=== PATIENT | female | born 1990 | race Caucasian/White ===

== ENCOUNTER 2022-05-21 14:59 | Outpatient (RCR) | payer OTHER, SELFPAY ==
[2022-05-21 16:41] VITALS: BP 105/66; PULSE 84
== END 2022-08-19 23:59 | disposition home or self-care (01) ==
LOC: ANHOBOP 14:59
PROVIDERS: Visit Provider Obstetrics & Gynecology
DX: O36.8130 Decreased fetal movements, third trimester, not applicable or unspecified (principal); Z3A.27 27 weeks gestation of pregnancy
CPT/HCPCS: 59025

== ENCOUNTER 2022-08-14 13:42 | Inpatient (IN) | payer OTHER, SELFPAY ==
[2022-08-14] VITALS (17 sets, daily range): BP systolic 120–152; BP diastolic 71–89; PULSE 70–121; RESP 18; TEMP 36.4–36.7; O2SAT 96–99; BMI 28.7
--- NOTE | 2022-08-14 14:29 | LDADM ---
This patient, Meagan Finch, was admitted to Labor/Delivery/Recovery 107 on 08/14/22 at 13:42. Plans for labor, pain management and were discussed with patient. Patient/family oriented to hospital policies and general routines including ID bracelet, bed and alarms, visiting hours, pain management, procedures, bathroom and other care routines, personal items, smoking policy, room service/diet and guest tray routines, infant security routines, and visiting hours. Patient/Family are encouraged to report perceived risks to care and to ask questions if they do not understand what they are told or what they should do. See OBIX for further documentation.
[2022-08-14 14:55] LABS: Basophils Percent Auto 0.3 % (0.2-1.2); Eosinophils Percent Auto 0.3 % (0-4.4); Hematocrit 40.1 % (37.0-47.0); Immature Granulocyte Absolute 0.06 K/mm3 (0.00-0.031); Immature Granulocyte Percent A 0.4 % (0-0.5); Lymphocytes Percent Auto 14.9 % (18.3-44.2); Mean Corpuscular HGB Conc 32.4 g/dl (32-36); Mean Corpuscular Hemoglobin 29.4 pg (26-34); Mean Corpuscular Volume 90.7 fl (80-100); Mean Platelet Volume 9.9 fl (7.4-10.4); Monocytes Absolute Auto 0.7 K/mm3 (0.1-0.6); Monocytes Percent Auto 4.9 % (2.6-8.5); Neutrophils Absolute Auto 11.7 K/mm3 (1.3-6.7); Neutrophils Percent Auto 79.2 % (45.5-73.1); Platelet Count Result 308 k/mm3 (150-375); Red Blood Count 4.42 M/mm3 (4.2-5.4); Red Cell Distribution Width 14.5 % (11.5-14.5); White Blood Count 14.8 K/mm3 (4.5-10.0)
--- NOTE | 2022-08-14 15:19 | P.HP_ITS ---
H&P: HPI History of Present Illness Date/Time: 08/14/22 15:19 Chief Complaint: Labor at term Narrative: this is a 32-year-old 2 para 1 whose last menstrual period is unknown but EDC is 08/18/2022 confirmed by 8 week ultrasound who presents at 3917 weeks gestation active labor she had an abnormal GCT but her 4hour was 4/4 normal she is negative for group B strep and she plans no epidural PMFSH Family History Family History Mother Diabetes mellitus Social History Social History Smoking status: Never smoker Second hand tobacco smoke exposure: No Substance use: never Lack of Transportation: No Lack of Food: Never True Current Housing: I Have Housing Concerned About Future Housing: No Difficulty Paying Gas/Electric Bills: No Difficulty Paying for Meds: No Currently Unemployed: No Education: Associate Degree Difficulty w/ Childcare or Family Care: No Spiritual care concerns: No Meds Home Medications and Allergies Home Medications Medication Instructions Recorded Confirmed Type No Home Medications 07/22/22 08/14/22 History Allergies Allergy/AdvReac Type Severity Reaction Status Date / Time No Known Allergies Allergy Verified 08/14/22 14:26 Vital Signs Vital Signs - 24 hr 08/14/22 14:27 08/14/22 14:31 08/14/22 14:45 Pulse Rate 72 74 Blood Pressure 151/82 H 132/86 Oxygen Delivery Room Air 08/14/22 14:46 08/14/22 15:15 08/14/22 15:16 Pulse Rate 77 70 103 H Blood Pressure 131/86 132/86 125/88 Oxygen Delivery Exam Const: General: healthy appearing and comfortable Orientation/conscious ness: oriented to person, oriented to place and oriented to time HENMT: Head: normal to inspection Resp: Effort & Inspection: normal respiratory effort Cardio: Rate: regular rate Rhythm: regular rhythm Heart sounds: S1 normal heart sound present and S2 normal heart sound present GI: Inspection: normal to inspection ( gravid soft uterus) : External Female Exam: normal external appearance Speculum Exam - Vagina: normal appearance of the vagina Speculum Exam - Cervix: normal appearance of the cervix ( cervix 5/100/1. AROM clear. FHT is reassuring) H&P: Results Labs Labs: Short CBC 08/14/22 Range/Units 14:23 WBC 14.8 H (4.5-10.0) K/mm3 Hgb 13.0 (12.0-15.0) g/dL Hct 40.1 (37.0-47.0) % Plt Count 308 (150-375) k/mm3 Assessment and Plan Assessment and plan (1) Term : Code(s): Z34.90 - Encounter for supervision of normal , unspecified, unspecified trimester Status: Acute Plan spontaneous vaginal delivery is expected
--- NOTE | 2022-08-14 17:01 | PM.OBPRVD ---
OB - Delivery Note Procedure Delivery date: 08/14/22 Induction method: None Delivery monitor: External FHT Route of delivery: Episiotomy description: None Laceration Description: None Specimen: No Quantitative Blood Loss (ml): 60 Anesthesia type: None Disposition: Floor [place] Baby Date of : 08/14/22 Time of : 16:51 Weeks of gestation at delivery: 39 Infant gender: Female presentation: vertex position: Right Occiput Anterior Placenta delivery description: Spontaneous Cord Vessel Description: 3 Vessels and Delayed Cord Clamping score one minute: 9 score five minutes: 9
--- NOTE | 2022-08-14 17:21 | PC.NURSE ---
Patient refused post delivery pitocin drip and refused continued use of IV access. Patient educated on risks of hemorrhage and possibility of needing a new IV. Patient verbalizes understanding and has no questions at this time. Patient's fundus palpates firm, midline, and at umbilicus at this time.
--- NOTE | 2022-08-14 18:23 | PC.NURSE ---
Dr. Edna Grady called about patient not getting any pit due to wanting her IV taken out. Dr. Edna Grady made aware that pt has vaginal flow and blood clots with last 3 fundal checks with blood loss measure to be 100 gms. Orders for .2mg methergine.
[2022-08-14] MEDS: METHYLERGONOVINE MALEATE 0.2 MG/ML VIAL IM (18:31)
--- NOTE | 2022-08-14 19:13 | PC.NURSE ---
Report given to RAYRAY Stone
--- NOTE | 2022-08-14 19:19 | OBPPTRN ---
Patient transferred to post room #288 via W/C. Support person present. Oriented to unit, room, information board, rooming in, admission packet and security measures. Patient verbalizes understanding.
[2022-08-14] MEDS: IBUPROFEN 600 MG TABLET PO (19:30)
[2022-08-14] MEDS: POLYSACCHARIDE IRON COMPLEX 150 MG CAPSULE PO (19:44)
[2022-08-14] MEDS: ACETAMINOPHEN 325 MG TABLET 650 MG PO (23:58)
[2022-08-15 04:13] VITALS: BP 120/70; PULSE 96; RESP 18; TEMP 36.7; O2SAT 100
[2022-08-15 05:56] LABS: Hematocrit 32.3 % (37.0-47.0); Hemoglobin 10.6 g/dL (12.0-15.0)
[2022-08-15 07:35] VITALS: BP 117/73; PULSE 88; RESP 16; TEMP 37.2; O2SAT 98
--- NOTE | 2022-08-15 07:43 | PM.DS ---
DS: Admitting Diagnosis Discharge Date 08/15/2022 Admitting Diagnosis term DS: Discharge Diagnosis Discharge Diagnosis (1) Term : Code(s): Z34.90 - Encounter for supervision of normal , unspecified, unspecified trimester Status: Acute DS: Summary Hospital Course Reason for hospitalization: active labor at term Hospital Course: this is a 32-year-old 2 now para 2 who is admitted at term in active labor. She underwent rapid spontaneous vaginal delivery with no epidural. Her hospital course was unremarkable. She remained afebrile. She was up, voiding without difficulty, ambulating, eating regular diet, breast-feeding, and generally without complaints. Time Spent with Patient Time attestation: Total time spent providing and/or coordinating discharge services: Exam Const: General: cooperative, healthy appearing and comfortable Nutritional Appearance: average body habitus Orientation/consciousness: oriented to person, oriented to place and oriented to time HENMT: Head: normal to inspection Resp: Effort & Inspection: normal respiratory effort Cardio: Rate: regular rate Rhythm: regular rhythm Heart sounds: S1 normal heart sound present and S2 normal heart sound present GI: Inspection: normal to inspection ( Fundus firm below the umbilicus) DS: Data Data Completed and Pending Labs on day of discharge: Labs from last 24 hours 08/15/22 08/14/22 08/14/22 04:22 14:23 14:23 WBC RBC Hgb 10.6 L Hct 32.3 L MCV MCH MCHC RDW Plt Count MPV Immature Gran % (Auto) Neut % (Auto) Lymph % (Auto) [place] % (Auto) Eos % (Auto) Baso % (Auto) Lymph # (Auto) [place] # (Auto) Eos # (Auto) Baso # (Auto) Abs Immat Gran (auto) Absolute Neuts (auto) Absolute Nucleated RBC Nucleated RBC % RPR Pending Blood Type A Positive Antibody Screen Negative 08/14/22 14:23 WBC 14.8 H RBC 4.42 Hgb 13.0 Hct 40.1 MCV 90.7 MCH 29.4 MCHC 32.4 RDW 14.5 Plt Count 308 MPV 9.9 Immature Gran % (Auto) 0.4 Neut % (Auto) 79.2 H Lymph % (Auto) 14.9 L [place] % (Auto) 4.9 Eos % (Auto) 0.3 Baso % (Auto) 0.3 Lymph # (Auto) 2.20 [place] # (Auto) 0.7 H Eos # (Auto) 0.0 Baso # (Auto) 0.0 Abs Immat Gran (auto) 0.06 H Absolute Neuts (auto) 11.7 H Absolute Nucleated RBC 0.0 Nucleated RBC % 0.0 RPR Blood Type Antibody Screen Discharge Plan Discharge Attending physician on discharge: Dean Jeong Discharging Clinician: Dean Jeong Patient Disposition: Home, Self-Care Activity: may shower, may drive after 2 weeks and pelvic rest Diet: heart healthy Wound Care Instructions: follow printed instructions Patient Instructions: Antibiotic Form Stand Alone Forms: General Discharge Information Follow-up/Referrals: Dean Jeong MD [Physician] - Discharge Medications: No Action No Home Medications Date of admission: 08/14/22 13:42 Primary Care Provider: PHYSICIAN,LABORER [employer] Admitting Provider: Dean Jeong Attending physician on admission: Dean Jeong Condition: Stable
[2022-08-15] MEDS: DOCUSATE SODIUM 100 MG CAPSULE PO (07:46)
[2022-08-15] MEDS: IBUPROFEN 600 MG TABLET PO (07:46)
[2022-08-15] MEDS: MULTIVIT/MIN/PREN/FOL AC/IRON TABLET 1 TAB PO (07:46)
--- NOTE | 2022-08-15 07:46 | PM.OBPNVD ---
OB - PN: Subj Subjective Date/time seen: 08/15/22 07:46 Patient comments: no complaints and pain well controlled baby status: doing well and nursing well OB - PN: Obj Data Labs 08/15/22 04:22 Labs: Laboratory Results - last 24 hr 08/14/22 08/14/22 08/15/22 14:23 14:23 04:22 WBC 14.8 H RBC 4.42 Hgb 13.0 10.6 L Hct 40.1 32.3 L MCV 90.7 MCH 29.4 MCHC 32.4 RDW 14.5 Plt Count 308 MPV 9.9 Immature Gran % (Auto) 0.4 Neut % (Auto) 79.2 H Lymph % (Auto) 14.9 L [place] % (Auto) 4.9 Eos % (Auto) 0.3 Baso % (Auto) 0.3 Lymph # (Auto) 2.20 [place] # (Auto) 0.7 H Eos # (Auto) 0.0 Baso # (Auto) 0.0 Abs Immat Gran (auto) 0.06 H Absolute Neuts (auto) 11.7 H Absolute Nucleated RBC 0.0 Nucleated RBC % 0.0 Blood Type A Positive Antibody Screen Negative OB - PN A/P Plan day: 1 Plan: routine care, discharge home and follow up 6 weeks Time Spent With Patient Time: Total time spent is greater than 50% in coordination of care (as documented) at patient's floor/unit and/or counseling patient: Time with patient: less than 15 minutes Exam Const: General: cooperative, healthy appearing and comfortable Nutritional Appearance: average body habitus Orientation/consciousness: oriented to person, oriented to place and oriented to time HENMT: Head: normal to inspection Resp: Effort & Inspection: normal respiratory effort Cardio: Rate: regular rate Rhythm: regular rhythm Heart sounds: S1 normal heart sound present and S2 normal heart sound present GI: Inspection: normal to inspection ( fundus firm below the umbilicus)
--- NOTE | 2022-08-15 11:50 | PC.NURSE ---
Patient viewed the discharge video Mother & Baby Care, The First Two Weeks . Patient was given the opportunity and encouraged to ask questions. Patient verbalized understanding of information shared and has been given the mother/baby guide for home reference.
[2022-08-15 12:20] VITALS: BP 118/86; PULSE 76; RESP 16; TEMP 36.8; O2SAT 98
--- NOTE | 2022-08-15 14:20 | PC.NURSE ---
[id number] Mother verbalizes she is able to independently latch with appropriate positioning/alignment. She denies any nipple discomfort and is responsively . Infant is currently meeting outcomes for weight, output, jaundice and feeding frequencies of 8-12 times in 24 hours. Mother breastfed her first child for 13 months who is now 19 months old. Mother declines any additional assistance/education at this time. Mother is encouraged to call for assistance if her infant doesn?t latch or there is discomfort with latching. Mother voiced understanding of information shared and the mom reminded of the mom/baby guide for an additional resource. Mother is feeding appropriately for growth of infant and understands stimulating infant to eat if needed. has had appropriate feedings in the last 24 hours meets the outcomes for weight, output and jaundice at this time. Mother states she is confident to continue effectively her at home, when to call for assistance and denies any additional assistance or education at this time. Reinforced understanding of milk production, transition of milk, signs of adequate intake, transition of stool, prevention/relief of engorgement, responsive watching for feeding cues, the different methods of stimulating infant to breastfeed 2-3 hours after the start of the last feeding, community resources, medication information reviewed per [facility] and when to call a provider using the resource of the mom and baby guide/[facility] website. Mother voiced understanding of the education shared. Reported to the primary RN.
[2022-08-15 16:18] VITALS: BP 118/78; PULSE 82; RESP 16; TEMP 36.9; O2SAT 100
[2022-08-16 09:43] LABS: Rapid Plasma Reagin Non-Reactive (NonReactive)
[2022-08-16 14:50] VITALS: BP 136/70; PULSE 76; RESP 20; TEMP 37; O2SAT 98
== END 2022-08-15 18:50 | disposition home or self-care (01) | DRG 807 ==
LOC: ANHLDR 14:16 → ANHOB2 19:40
PROVIDERS: Admitting Provider Obstetrics & Gynecology; Visit Provider Obstetrics & Gynecology
DX: O80 Encounter for full-term uncomplicated delivery (principal); Z37.0 Single live birth; Z3A.39 39 weeks gestation of pregnancy
CPT/HCPCS: 36415; 85014; 85018; 85025; 86592; 86850; 86900; 86901; A9270; J2210

== ENCOUNTER 2023-12-15 22:58 | Observation (INO) | payer OTHER, SELFPAY ==
--- NOTE | 2023-12-15 22:58 | PC.NURSE ---
Pt arrives to unit from home with leaking and contractions.
--- NOTE | 2023-12-16 01:41 | OBADM ---
This patient, Meagan Finch, admitted to the OB room Labor/Delivery/Recovery 104 for observation. Patient/family oriented to hospital policies and general routines including ID bracelet, bed and alarms, visiting hours, pain management, procedures, bathroom and other care routines, personal items, smoking policy, room service/diet, and visiting hours. Patient/Family are encouraged to report perceived risks to care and to ask questions if they do not understand what they are told or what they should do.
[2023-12-16 01:48] VITALS: BMI 29.7
--- NOTE | 2023-12-16 01:56 | PC.NURSE ---
Pt discharged with instructions on when to return to the unit.
--- NOTE | 2023-12-19 08:47 | PM.OBTRLD ---
OB - Triage/Final Diagnosis Visit Information Comments/Additional reasons for admission: I have assessed the risk for this patient, Meagan Finch, and determined that she would benefit from observation care. Final Diagnosis (1) False labor: Code(s): O47.9 - False labor, unspecified Status: Acute
== END 2023-12-16 01:56 | disposition home or self-care (01) ==
PROVIDERS: Admitting Provider Obstetrics & Gynecology; Visit Provider Obstetrics & Gynecology
DX: O47.1 False labor at or after 37 completed weeks of gestation (principal); Z3A.40 40 weeks gestation of pregnancy
CPT/HCPCS: 84112; G0378; G0379

== ENCOUNTER 2023-12-21 01:19 | Inpatient (IN) | payer OTHER, SELFPAY ==
[2023-12-21] VITALS (15 sets, daily range): BP systolic 117–134; BP diastolic 73–89; PULSE 71–132; RESP 16–18; TEMP 36.5–36.8; O2SAT 98–100; BMI 29.1
[2023-12-21] MEDS: LIDOCAINE HCL 1% LOCAL INJ 20 ML VIAL (01:53)
--- NOTE | 2023-12-21 02:00 | PM.IMHP ---
H&P: HPI History of Present Illness Date/Time: 12/21/23 02:00 Chief Complaint: Labor at 41 weeks Narrative: 33-year-old 3 para 2 at41 and 2 7th weeks gestation with active labor. has been uncomplicated. She is negative for group B strep PMFSH Family History Family History Mother Diabetes mellitus Social History Social History Smoking status: Never smoker Second hand tobacco smoke exposure: No Substance use: never Lack of Transportation: No Lack of Food: Never True Current Housing: I Have Housing Concerned About Future Housing: No Difficulty Paying Gas/Electric Bills: No Difficulty Paying for Meds: No Currently Unemployed: No Education: Associate Degree Difficulty w/ Childcare or Family Care: No Spiritual care concerns: No Meds Home Medications and Allergies Home Medications Medication Instructions Recorded Confirmed Type prenat.vits,antonella,[id number] 1 tablet 12/08/23 History Allergies Allergy/AdvReac Type Severity Reaction Status Date / Time No Known Allergies Allergy Verified 12/16/23 02:11 Vital Signs Vital Signs - 24 hr 12/21/23 01:38 12/21/23 01:38 12/21/23 01:43 Pulse Oximetry 100 100 99 12/21/23 01:43 12/21/23 01:44 12/21/23 01:44 Pulse Oximetry 98 100 99 Exam Const: General: cooperative, healthy appearing and comfortable Nutritional Appearance: average body habitus Orientation/consciousness: oriented to person, oriented to place and oriented to time HENMT: Head: normal to inspection Resp: Effort & Inspection: normal respiratory effort Cardio: Rate: regular rate Rhythm: regular rhythm Heart sounds: S1 normal heart sound present and S2 normal heart sound present GI: Inspection: normal to inspection : Speculum Exam - Vagina: normal appearance of the vagina Speculum Exam - Cervix: normal appearance of the cervix ( cervix 7 and quickly to complete with spontaneous rupture membranes) Assessment and Plan Assessment and plan (1) Term : Code(s): Z34.90 - Encounter for supervision of normal , unspecified, unspecified trimester Status: Acute Plan spontaneous vaginal deliveries in the
--- NOTE | 2023-12-21 02:03 | PM.OBPRVD ---
OB - Vaginal Delivery Note Procedure Delivery date: 12/21/23 Events: Other ( postdate ) Induction method: None Delivery monitor: External FHT Route of delivery: Episiotomy description: None Laceration Description: Perineal - 1st Degree Delivery repair: vicryl Specimen: No Quantitative Blood Loss (ml): 61 Anesthesia type: Local Disposition: Floor Complications: No immediate complications Narrative: patient was admitted in active labor at 40-,1/2 weeks gestation and underwent spontaneous vaginal delivery placenta delivered intact spontaneously. Baby Date of : 12/21/23 Time of : 01:43 Weeks of gestation at delivery: 41 gender: Female presentation: vertex Placenta delivery description: Spontaneous Cord Vessel Description: 3 Vessels score one minute: 7 score five minutes: 9
--- NOTE | 2023-12-21 02:05 | PM.DS ---
DS: Admitting Diagnosis Discharge Date 12/22/2023 Admitting Diagnosis Term DS: Discharge Diagnosis Discharge Diagnosis (1) Term : Code(s): Z34.90 - Encounter for supervision of normal , unspecified, unspecified trimester Status: Acute DS: Summary Hospital Course Reason for hospitalization: patient was admitted on 12/21 23 and underwent spontaneous vaginal delivery Hospital Course: the patient's hospital course was unremarkable. She remained afebrile. She was up, voiding without difficulty, eating regular diet, ambulating, and generally without complaints. Time Spent with Patient Time attestation: Total time spent providing and/or coordinating discharge services: Discharge Plan Discharge Attending physician on discharge: Dean Jeong Discharging Clinician: Dean Jeong Patient Disposition: Home, Self-Care Activity: may shower, no straining and pelvic rest Diet: heart healthy Wound Care Instructions: follow printed instructions Patient Instructions: Antibiotic Form Stand Alone Forms: General Discharge Information Follow-up/Referrals: Dean Jeong MD [Physician] - Discharge Medications: Continued prenat.vits,antonella,[id number] Tablet 1 tablet Date of admission: 12/21/23 01:19 Primary Care Provider: UNKNOWN,DOCTOR Admitting Provider: Dean Jeong Attending physician on admission: Dean Jeong Condition: Stable
[2023-12-21 02:19] LABS: Basophils Absolute Auto 0.1 K/mm3 (0.0-0.1); Basophils Percent Auto 0.4 % (0.2-1.2); Eosinophils Absolute Auto 0.1 K/mm3 (0-0.3); Eosinophils Percent Auto 1.1 % (0-4.4); Hematocrit 34.9 % (37.0-47.0); Hemoglobin 11.7 g/dL (12.0-15.0); Immature Granulocyte Percent A 0.8 % (0-0.5); Lymphocytes Percent Auto 21.6 % (18.3-44.2); Mean Corpuscular HGB Conc 33.5 g/dl (32-36); Mean Corpuscular Hemoglobin 28.1 pg (26-34); Mean Corpuscular Volume 83.9 fl (80-100); Mean Platelet Volume 9.8 fl (7.4-10.4); Monocytes Percent Auto 7.5 % (2.6-8.5); Neutrophils Absolute Auto 8.9 K/mm3 (1.3-6.7); Neutrophils Percent Auto 68.6 % (45.5-73.1); Platelet Count Result 336 k/mm3 (150-375); Red Blood Count 4.16 M/mm3 (4.2-5.4); Red Cell Distribution Width 15.3 % (11.5-14.5)
[2023-12-21] MEDS: BENZOCAINE 20% AER SPR (*SP) 56 GM CAN 1 SPRAY TOPICAL (03:07)
[2023-12-21] MEDS: WITCH HAZEL 40 PADS 1 PAD TOPICAL (03:07)
[2023-12-21] MEDS: ACETAMINOPHEN 500 MG TABLET 1000 MG PO (03:07)
[2023-12-21 04:14] LABS: HIV 1/2 Ab P24 Ag Result Negative (Negative)
--- NOTE | 2023-12-21 04:26 | OBPPTRN ---
Patient transferred to post room #282 via w/c. Support person present. Oriented to unit, room, information board, rooming in, admission packet and security measures. Patient verbalizes understanding.
[2023-12-21] MEDS: DOCUSATE SODIUM 100 MG CAPSULE PO ×2 (09:30→16:35)
[2023-12-21] MEDS: MULTIVIT/MIN/PREN/FOL AC/IRON TABLET 1 TAB PO (09:30)
[2023-12-21] MEDS: IBUPROFEN 600 MG TABLET PO (09:30)
[2023-12-21] MEDS: ACETAMINOPHEN 325 MG TABLET 650 MG PO (12:12)
[2023-12-22 04:32] LABS: Hematocrit 31.5 % (37.0-47.0); Hemoglobin 9.7 g/dL (12.0-15.0)
--- NOTE | 2023-12-22 06:49 | PM.OBPNVD ---
OB - PN: Subj Subjective Date/time seen: 12/22/23 06:49 Patient comments: no complaints and pain well controlled baby status: doing well and nursing well OB - PN: Obj Data Labs 12/22/23 04:19 Labs: Laboratory Results - last 24 hr 12/22/23 04:19 Hgb 9.7 L Hct 31.5 L OB - PN A/P Plan day: 1 Plan: routine care Time Spent With Patient Time: Total time spent is greater than 50% in coordination of care (as documented) at patient's floor/unit and/or counseling patient: Time with patient: less than 15 minutes Exam Const: General: cooperative, healthy appearing and comfortable Nutritional Appearance: average body habitus Orientation/consciousness: oriented to person, oriented to place and oriented to time Resp: Effort & Inspection: normal respiratory effort Cardio: Rate: regular rate Rhythm: regular rhythm Heart sounds: S1 normal heart sound present and S2 normal heart sound present
[2023-12-22] MEDS: POLYSACCHARIDE IRON COMPLEX 150 MG CAPSULE PO (07:58)
[2023-12-22] MEDS: DOCUSATE SODIUM 100 MG CAPSULE PO (07:58)
[2023-12-22] MEDS: MULTIVIT/MIN/PREN/FOL AC/IRON TABLET 1 TAB PO (07:58)
[2023-12-22 08:00] VITALS: BP 135/74; PULSE 86; RESP 16; TEMP 36.4; O2SAT 99
--- NOTE | 2023-12-22 12:56 | PC.NURSE ---
1020. Consulted with patient to assess needs related to . Discussed with mother her successes, concerns and any questions she has. Mother verbalizes she is able to independently latch with appropriate positioning and alignment on the R and has some discomfort on the L. She is responsively . We reviewed working with the , supporting breast, protecting her nipples with an optimal deep latch, good positioning, and good hand washing. Encouraged understanding the benefits of skin to skin, responding to feeding cues, frequencies of feeding 8-12 times in 24 hours (approximately 2-3 hours), duration of feedings, milk production, intake/output feeding sheet and signs of adequate intake encouraging swallowing at the breast. Reviewed positioning and alignment, supporting breast, off-centered (asymmetrical latch) and leading with the chin with big, open, wide gape. Infant latched optimally to the [left] breast in [cross cradle] position. Education given to the mother of how to visualize the suckling (with good rocking jaw motion) swallows (dropping of the lower jaw) and how to listen for drinking at the breast (the ka sound). The was [able] to maintain latch without discomfort to mother. Nipple care reviewed with optimal latch, good positioning and using clean hands when touching her breast. Mother voiced understanding of the education shared, to call for assistance if the does not latch or if there is discomfort with . Reported to the Primary RN. Nipple shield provided to mother due to mother's request and occasional pain with on the L side. Reviewed good handwashing, cleaning the nipple shield and the appropriate way to apply and use as a tool. Discussed with mom the nipple shield precautions, possible complications associated with the risks and benefits. Reviewed practicing with a nipple shield, then without and how to protect the milk supply and production. Mom and baby guide referred to as a resource for outpatient services, community resources and when to call a provider. Mom voiced understanding of the importance of hand expression, nipple stimulation and initiating a pumping schedule if infant continues to nurse with the shield. Reported to the Primary RN.
[2023-12-22 19:08] LABS: Rapid Plasma Reagin Non-Reactive (NonReactive)
[2023-12-23 07:56] VITALS: BP 130/83; PULSE 88; RESP 20; TEMP 36.8; O2SAT 99
== END 2023-12-22 12:35 | disposition home or self-care (01) | DRG 807 ==
LOC: ANHLDR 02:07 → ANHOB2 04:33
PROVIDERS: Admitting Provider Obstetrics & Gynecology; Visit Provider Obstetrics & Gynecology
DX: O48.0 Post-term pregnancy (principal); Z37.0 Single live birth; Z3A.41 41 weeks gestation of pregnancy; O70.0 First degree perineal laceration during delivery; O62.3 Precipitate labor; O69.82X0 Labor and delivery complicated by other cord entanglement, without compression, not applicable or unspecified
CPT/HCPCS: 36415; 85014; 85018; 85025; 86592; 86703; 86850; 86900; 86901; A9270; G0432